=== PATIENT | male | born 1990 | race Caucasian/White ===

== ENCOUNTER 2022-09-23 01:59 | Emergency (ER) | payer MEDICAID ==
[~2022-09-23] VITALS: Ht 175.3 cm; Wt 82.0 kg
[2022-09-23 03:26] LABS: BASOPHILS % 1.1 % (0.0-2.0); EOSINOPHILS % 6.9 % (0.0-5.0); HEMOGLOBIN. 13.2 g/dL (14.0-18.0); LYMPHOCYTES % 34.8 % (20.0-50.0); MEAN CORPUSCULAR HEMOGLOBIN 29.4 pg (28.0-32.0); MEAN CORPUSCULAR VOLUME 84.7 fL (80.0-94.0); MEAN PLATELET VOLUME 8.4 fl (7.4-10.4); MONOCYTES % 9.8 % (2.0-8.0); NEUTROPHILS % 47.4 % (40.0-76.0); PLATELET 271 x1000/uL (130-400); RED BLOOD CELL COUNT 4.49 mill/uL (4.7-6.1); RED CELL DISTRIBUTION WIDTH 13.9 % (11.6-14.6)
[2022-09-23 03:46] LABS: CHLORIDE 107 mEq/L (98-107)
[2022-09-23 03:51] LABS: ETHANOL BLOOD < 10 mg/dL
[2022-09-23 08:00] VITALS: BP 125/66
== END 2022-09-23 09:04 | disposition left against medical advice (07) ==
LOC: ER 01:59 → EDBEDREQ 08:04 → EDBEDREQTM 08:04 → ER 09:04 → CANBEDREQ 09-25 06:11
DX: T65.91XA Toxic effect of unspecified substance, accidental (unintentional), initial encounter (principal); Y92.9 Unspecified place or not applicable
CPT/HCPCS: 36415; 80048; 80320; 85025; 99283; G0480